=== PATIENT | male | born 1980 | race Hispanic/Latino ===

== ENCOUNTER 2019-05-06 22:29 | Emergency (ER) | payer OTHER ==
[~2019-05-06] VITALS: Ht 167.6 cm; Wt 84.8 kg
--- OUTSIDE RECORDS SUMMARY | 2019-05-06 22:32 | XMS REPORT | Continuity of Care Document ---
Author Author [facility] Address Unknown Phone Unavailable Care Team Providers Care Fast Food Delivery Driver Name Role Phone Blaze Unavailable Unavailable Problems Problem Status Onset Date Classification Date Reported Comments Source Z68.29 BODY MASS INDEX (BMI) 29.0-29.9, Active 03/11/2019 [facility] Obesity, unspecified 05/11/2018 11/21/2018 [facility] DX: Z68.29=BODY MASS INDEX (BMI) 29.0-29 Active 05/07/2018 [facility] Constipation, unspecified constipation type Active Problem 01/10/2019 [facility] Hx of cold sores Active Problem 01/10/2019 [facility] Adult BMI 30+ Active Problem 01/10/2019 [facility] Encntr for general adult medical exam w/o abnormal findings Active Diagnosis 06/10/2017 [facility] BMI 29.0-29.9,adult Active Diagnosis 06/10/2017 [facility] Encntr screen for infections w sexl mode of transmiss Active Diagnosis 06/10/2017 [facility] Chest pain on breathing Active Diagnosis 09/04/2015 [facility] Screening for prostate cancer Active Diagnosis 11/20/2018 [facility] Routine physical examination Active Diagnosis 11/20/2018 [facility] Acute URI Active Diagnosis 11/14/2018 [facility] Encounter to discuss test results Active Diagnosis 09/04/2015 [facility] Body mass index 29.0-29.9, adult 11/21/2018 [facility] Dietary counseling and surveillance 11/21/2018 [facility] Medications Medication Details Route Status Patient Instructions Ordering Provider Order Date Source Famciclovir 3 tablet Orally Active 500 mg Orally as needed (prn) Miles 11/16/2018 [facility] Bromfed DM 10 ml as needed Orally Active 30-2-10 MG/5ML Orally every 4-6 hrs PRN Miles 11/07/2018 [facility] Famciclovir 3 tablet Orally Active 500 mg Orally once a day Elida 08/06/2017 [facility] Famciclovir 3 tables Orally Active 500 mg Orally once Ghebranious 07/22/2015 [facility] NO OTC meds taken not defined In Vitro Active In Vitro lEida [facility] NO OTC meds taken not defined In Vitro Active In Vitro Miles [facility] Allergies, Adverse Reactions, Alerts Substance Category Reaction Severity Reaction type Status Date Reported Comments Source N.K.D.A. Adverse Reaction Info Not Available Adverse Reaction Active 11/19/2018 [facility] Immunizations No Data Provided for This Section Results No Data Provided for This Section Pathology Reports No Data Provided for This Section Diagnostic Reports No Data Provided for This Section Consultation Notes No Data Provided for This Section Discharge Summaries No Data Provided for This Section History and Physicals No Data Provided for This Section Vital Signs Vital Sign Value Date Comments Source Weight 186 11/19/2018 [facility] Height 66 11/19/2018 [facility] Heart Rate 87 11/19/2018 [facility] Diastolic (mm Hg) 82 11/19/2018 [facility] Systolic (mm Hg) 118 11/19/2018 [facility] Weight 181 11/07/2018 [facility] Height 66 11/07/2018 [facility] Temperature Oral (F) 98.8 F 11/07/2018 [facility] Heart Rate 76 11/07/2018 [facility] Diastolic (mm Hg) 74 11/07/2018 [facility] Systolic (mm Hg) 118 11/07/2018 [facility] Weight 185 06/07/2017 [facility] Height 66 06/07/2017 [facility] Heart Rate 88 06/07/2017 [facility] Diastolic (mm Hg) 72 06/07/2017 [facility] Systolic (mm Hg) 128 06/07/2017 [facility] Weight 177 09/02/2015 [facility] Height 66 09/02/2015 [facility] Heart Rate 82 09/02/2015 [facility] Diastolic (mm Hg) 74 09/02/2015 [facility] Systolic (mm Hg) 116 09/02/2015 [facility] Encounters Location Location Details Encounter Type Encounter Number Reason For Visit Attending Provider ADM Date DC Date Status Source [facility] DESIGN INTERN-PHYSICAL EXAM AND FBW [id number] 07/22/2015 07/22/2015 [facility] DESIGN INTERN-PHYSICAL EXAM AND FBW [id number] 07/22/2015 07/22/2015 [facility] Needs call back from Medical Staff [id number] 07/29/2015 07/29/2015 [facility] Needs call back from Medical Staff [id number] 07/29/2015 07/29/2015 [facility] ECHO- [id number] 08/07/2015 08/07/2015 [facility] ECHO- [id number] 08/07/2015 08/07/2015 [facility] TMTJamaica COLLINS [id number] 09/02/2015 09/02/2015 [facility] Recurring [id number] Elizabeth Marrero 06/19/2017 07/19/2017 [facility] Recurring [id number] Elizabeth Marrero 07/31/2017 08/30/2017 [facility] Recurring [id number] Elizabeth Elida 09/11/2017 10/11/2017 [facility] Recurring [id number] Elizabeth Elida 10/24/2017 11/23/2017 [facility] Recurring [id number] Elizabeth Elida 11/29/2017 12/29/2017 [facility] PreReg [id number] Elizabeth Elida 04/05/2018 01/08/2018 [facility] Recurring [id number] Elizabeth Elida 04/05/2018 05/05/2018 [facility] Recurring [id number] Elizabeth Elida 05/09/2018 05/09/2018 [facility] Recurring [id number] Elizabeth Elida 11/13/2018 12/13/2018 [facility] Recurring [id number] Elizabeth Elida 01/31/2019 03/02/2019 [facility] Recurring [id number] Kari Miles 03/13/2019 04/12/2019 [facility] Procedures No Data Provided for This Section Assessment and Plan No Data Provided for This Section Plan of Care No Data Provided for This Section Social History Social History Date Source No data available for this section 04/12/2019 [facility] Social History ElementQualifiersDate Reported Ethnicity . Status , Is malay your primary language? No Sep 02, 2015 Tobacco Use: . Are you a: never smoker Sep 02, 2015 Do you have pets? . Status: Yes, Type: dog(s) Sep 02, 2015 Marital Status: . Meghan Sep 02, 2015 Caffeine intake? . Status: Yes, What type: Tea Sep 02, 2015 Do you exercise? . Answer: Yes, Type: cardio, weight lifting Sep 02, 2015 Do you drink alcohol? . 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/02/2015 [facility] Family History Value Date Source QualifierDescriptionCommentDate Reported Maternal Grandmother Comment not available Sep 02, 2015 Paternal Grandmother Comment not available Sep 02, 2015 Siblings alive Comment not available Sep 02, 2015 Maternal Grandfather Comment not available Sep 02, 2015 Children Comment not available Sep 02, 2015 Father alive Comment not available Sep 02, 2015 Paternal Grandfather Comment not available Sep 02, 2015 Mother alive Comment not available Sep 02, 2015 Other: Comment not available Sep 02, 2015 09/04/2015 [facility] Advance Directives No Data Provided for This Section Functional Status No Data Provided for This Section
--- OUTSIDE RECORDS SUMMARY | 2019-05-06 22:32 | XMS REPORT | Summary of Care ---
Author Author [facility] Organization [facility] Address Unknown Phone Unavailable Encounter HQ Larry_roxy(FIN) [id number] Date(s): 04/05/18 - 05/04/18 [facility] [address] [place] [address]- Encounter Diagnosis Obesity, unspecified (Final) - 05/10/18 Body mass index (BMI) 29.0-29.9, adult (Final) - Dietary counseling and surveillance (Final) - Discharge Disposition: Home or Self Care Attending Physician: Elizabeth Marrero Referring Physician: Elizabeth Marrero Vital Signs No data available for this section Problem List No data available for this section Allergies, Adverse Reactions, Alerts No data available for this section Medications No data available for this section Results No data available for this section Immunizations No data available for this section Procedures No data available for this section Social History No data available for this section Assessment and Plan No data available for this section
--- OUTSIDE RECORDS SUMMARY | 2019-05-06 22:32 | XMS REPORT ---
Author Author Gilmer Lloyd [employer] Address Unknown Phone Unavailable Care Team Providers Care Ship Engines Operating Engineer Name Role Phone Gilmer Lloyd CP Unavailable Allergies, Adverse Reactions, Alerts Substance Reaction Event Type N.K.D.A. Info Not Available Non Drug Allergy Encounters Encounter Location Date TMT- DR.G [facility] Sep 02, 2015 TAXONOMIST-PHYSICAL EXAM AND FBW [facility] Jul 22, 2015 Needs call back from Medical Staff [facility] Jul 29, 2015 ECHO-DR.G [facility] Aug 07, 2015 Problems Problem Type Condition ICD-9 Code Onset Dates Condition Status Assessment Chest pain on breathing R07.1 Active Assessment Encounter to discuss test results Z71.89 Active Problem Hx of cold sores Z86.19 Active Assessment Hx of cold sores Z86.19 Active Medications Medication Code System Code Instructions Start Date End Date Status Dosage Famciclovir MEDISPAN [address]-04 500 mg Orally once Jul 22, 2015 Jul 30, 2015 Active 3 tables [facility] [id number] In Vitro Active Unknown Social History Social History Element Qualifiers Date Reported Ethnicity . Status , Is british virgin islander your primary language? 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
--- OUTSIDE RECORDS SUMMARY | 2019-05-06 22:32 | XMS REPORT | Summary of Care ---
Author Author [facility] Organization [facility] Address Unknown Phone Unavailable Encounter HQ Encntr_alias(FIN) [id number] Date(s): 05/09/18 - 05/09/18 [facility] [address] [place] [address]- Attending Physician: Elizabeth Marrero Referring Physician: Elizabeth [...]
--- OUTSIDE RECORDS SUMMARY | 2019-05-06 22:32 | XMS REPORT ---
Author Author Kari Aquino Organization [employer] Address Unknown Phone Unavailable Care Team Providers Care Rail Express Clerk Name Role Phone Kari Aquino CP Unavailable Allergies, Adverse Reactions, Alerts Substance Reaction Event Type N.K.D.A. Info Not Available Non Drug Allergy Problems Problem Type Condition Code Onset Dates Condition Status Assessment Adult BMI 30+ E66.8 Active Problem Constipation, unspecified constipation type K59.00 Active Problem Hx of cold sores Z86.19 Active Problem Adult BMI 30+ E66.8 Active Assessment Screening for prostate cancer Z12.5 Active Assessment Constipation, unspecified constipation type K59.00 Active Assessment Routine physical examination Z00.00 Active Medications No Known Medications Vital Signs Date/Time: Nov 19, 2018 BMI 30.02 Index Weight 186 lbs Height 66 in Cardiac Monitoring Heart Rate 87 /min Blood Pressure Diastolic 82 mm Hg Blood Pressure Systolic 118 mm Hg Results No Known Results Summary Purpose [employer] Submission
--- OUTSIDE RECORDS SUMMARY | 2019-05-06 22:32 | XMS REPORT ---
Author Author Gilmer Lloyd Organization [employer] Address Unknown Phone Unavailable Care Team Providers Care Lens Dotter Name Role Phone Gilmer Lloyd CP Unavailable Allergies No Known Allergies Problems Problem Type Condition Code Onset Dates Condition Status Problem Constipation, unspecified constipation type K59.00 Active Problem Hx of cold sores Z86.19 Active Problem Adult BMI 30+ E66.8 Active Assessment Adult BMI 30+ E66.8 Active Medications No Known Medications Results No Known Results Summary Purpose [employer] Submission
--- OUTSIDE RECORDS SUMMARY | 2019-05-06 22:32 | XMS REPORT | Summary of Care ---
Author Author [facility] Organization [facility] Address Unknown Phone Unavailable Encounter HQ Encntr_alias(FIN) [id number] Date(s): 01/31/19 - 03/01/19 [facility] [address] [place] [address]- Discharge Disposition: Home or Self Care Attending [...]
--- OUTSIDE RECORDS SUMMARY | 2019-05-06 22:32 | XMS REPORT | Summary of Care ---
Author Author [facility] Organization [facility] Address Unknown Phone Unavailable Encounter HQ Encntr_alias(FIN) [id number] Date(s): 06/19/17 - 07/18/17 [facility] [address] [place] [address]- Discharge Disposition: Home or Self Care Attending [...]
--- OUTSIDE RECORDS SUMMARY | 2019-05-06 22:32 | XMS REPORT ---
Author Author Kari Aquino Organization [employer] Address Unknown Phone Unavailable Care Team Providers Care Film Waxer Name Role Phone Kari Aquino CP Unavailable Allergies, Adverse Reactions, Alerts Substance Reaction Event Type N.K.D.A. Info Not Available Non Drug Allergy Problems Problem Type Condition Code Onset Dates Condition Status Problem Hx of cold sores Z86.19 Active Problem Constipation, unspecified constipation type K59.00 Active Assessment Constipation, unspecified constipation type K59.00 Active Assessment Acute URI J06.9 Active Medications Medication Code System Code Instructions Start Date End Date Status Dosage Bromfed DM [facility] [id number] 30-2-10 MG/5ML Orally every 4-6 hrs PRN Nov 07, 2018 Nov 14, 2018 Active 10 ml as needed Famciclovir [facility] [address]-24 500 mg Orally as needed (prn) Nov 16, 2018 Active 3 tablet NO OTC meds taken [facility] [id number] In Vitro Active not defined Vital Signs Date/Time: Nov 07, 2018 BMI 29.21 Index Weight 181 lbs Height 66 in Temperature 98.8 F Cardiac Monitoring Heart Rate 76 /min Blood Pressure Diastolic 74 mm Hg Blood Pressure Systolic 118 mm Hg Results No Known Results Summary Purpose [employer] Submission
--- OUTSIDE RECORDS SUMMARY | 2019-05-06 22:32 | XMS REPORT ---
Author Author Gilmer Lloyd Organization [employer] Address Unknown Phone Unavailable Care Team Providers Care Filter Plant Operator Name Role Phone Gilmer Lloyd CP Unavailable Encounters Encounter Location Date WASH[place]IA ATTENDANT-PHYSICAL EXAM AND FBW [facility] Jul 22, 2015 Needs call back from Medical Staff [facility] Jul 29, 2015 ECHO-DR.G [facility] Aug 07, 2015 Problems Problem Type Condition ICD-9 Code Onset Dates Condition Status Assessment Chest pain on breathing R07.1 Active Medications Medication Code System Code Instructions Start Date End Date Status Dosage NO OTC meds taken [facility] [address] In Vitro Active Unknown Social History Social History Element Qualifiers Date Reported Ethnicity . Status , Is arabic your primary language? No Jul 22, 2015 Tobacco Use: . Are you a: never smoker Jul 22, 2015 Do you have pets? . Status: Yes, Type: dog(s) Jul 22, 2015 Marital Status: . Meghan Jul 22, 2015 Caffeine intake? . Status: Yes, What type: Tea Jul 22, 2015 Do you exercise? . Answer: Yes, Type: cardio, weight lifting Jul 22, 2015 Do you drink alcohol? . 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
--- OUTSIDE RECORDS SUMMARY | 2019-05-06 22:32 | XMS REPORT ---
Author Author Elizabeth Marrero Organization [employer] Address Unknown Phone Unavailable Care Team Providers Care Food Service Cashier Name Role Phone Elizabeth Marrero CP Unavailable Allergies, Adverse Reactions, Alerts Substance Reaction Event Type N.K.D.A. Info Not Available Non Drug Allergy Problems Problem Type Condition Code Onset Dates Condition Status Problem Hx of cold sores Z86.19 Active Assessment Encntr for general adult medical exam w/o abnormal findings Z00.00 Active Problem Constipation, unspecified constipation type K59.00 Active Assessment Constipation, unspecified constipation type K59.00 Active Assessment BMI 29.0-29.9,adult Z68.29 Active Assessment Hx of cold sores Z86.19 Active Assessment Encntr screen for infections w sexl mode of transmiss Z11.3 Active Medications Medication Code System Code Instructions Start Date End Date Status Dosage Famciclovir [facility] [id number] 500 mg Orally once a day Aug 06, 2017 Active 3 tablet NO OTC meds taken [facility] [address] In Vitro Active not defined Vital Signs Date/Time: Jun 07, 2017 BMI 29.86 Index Weight 185 lbs Height 66 in Cardiac Monitoring Heart Rate 88 /min Blood Pressure Diastolic 72 mm Hg Blood Pressure Systolic 128 mm Hg Results No Known Results Summary Purpose eClinicalWorks Submission
--- OUTSIDE RECORDS SUMMARY | 2019-05-06 22:33 | XMS REPORT | Summary of Care ---
Author Author [facility] Organization [facility] Address Unknown Phone Unavailable Encounter HQ Encntr_alias(FIN) [id number] Date(s): 09/11/17 - 10/10/17 [facility] [address] [place] [address]- Encounter Diagnosis Obesity, unspecified (Final) - 10/16/17 Body mass index (BMI) 29.0-29.9, adult (Final) - Discharge Disposition: Home or Self [...]
--- OUTSIDE RECORDS SUMMARY | 2019-05-06 22:33 | XMS REPORT | Summary of Care ---
Author Author [facility] Organization [facility] Address Unknown Phone Unavailable Encounter HQ Encntr_alias(FIN) [id number] Date(s): 09/11/17 - 10/10/17 [facility] [address] [place] [address]- Encounter Diagnosis Obesity, unspecified (Final) - 10/16/17 [...]
--- OUTSIDE RECORDS SUMMARY | 2019-05-06 22:33 | XMS REPORT | Summary of Care ---
Author Author [facility] Organization [facility] Address Unknown Phone Unavailable Encounter HQ Encntr_alias(FIN) [id number] Date(s): 04/05/18 - 01/08/18 [facility] [address] [place] [address]- Attending Physician: Elizabeth Marrero Referring Physician: Elizabeth [...]
--- OUTSIDE RECORDS SUMMARY | 2019-05-06 22:33 | XMS REPORT | Summary of Care ---
Author Author [facility] Organization [facility] Address Unknown Phone Unavailable Encounter HQ Encntr_alias(FIN) [id number] Date(s): 11/13/18 - 12/12/[address] [facility] [place] [address] [place] [address]- Discharge Disposition: Home or Self Care Attending [...]
--- OUTSIDE RECORDS SUMMARY | 2019-05-06 22:33 | XMS REPORT | Summary of Care ---
Author Author [facility] Organization [facility] Address Unknown Phone Unavailable Encounter HQ Encntr_alias(FIN) [id number] Date(s): 04/05/18 - 01/08/18 [facility] [address] [place] [address]- Attending Physician: Elizabeth Marrero Referring Physician: Elizabeth [...]
--- OUTSIDE RECORDS SUMMARY | 2019-05-06 22:33 | XMS REPORT | Summary of Care ---
Author Author [facility] Organization [facility] Address Unknown Phone Unavailable Encounter HQ Jamisonr_roxy(FIN) [id number] Date(s): 10/24/17 - 11/22/17 [facility] [address] [place] [address]- Encounter Diagnosis Obesity, unspecified (Final) - 11/28/17 Body mass index (BMI) 29.0-29.9, adult (Final) [...]
--- OUTSIDE RECORDS SUMMARY | 2019-05-06 22:33 | XMS REPORT | Summary of Care ---
Author Author [facility] Organization [facility] Address Unknown Phone Unavailable Encounter HQ Encntr_alias(FIN) [id number] Date(s): 09/11/17 - 10/10/17 [facility] [address] [place] [address]- Discharge Disposition: Home or Self Care Attending [...]
--- OUTSIDE RECORDS SUMMARY | 2019-05-06 22:33 | XMS REPORT | Summary of Care ---
Author Author [facility] Organization [facility] Address Unknown Phone Unavailable Encounter HQ Encntr_alias(FIN) [id number] Date(s): 07/31/17 - 08/29/17 [facility] [address] [place] [address]- Discharge Disposition: Home or Self Care Attending [...]
--- OUTSIDE RECORDS SUMMARY | 2019-05-06 22:33 | XMS REPORT | Summary of Care ---
Author Author [facility] Organization [facility] Address Unknown Phone Unavailable Encounter HQ Encntr_alias(FIN) [id number] Date(s): 11/29/17 - 12/28/17 [facility] [address] [place] [address]- [phone] Encounter Diagnosis Body mass index (BMI) 29.0-29.9, adult (Final) - 01/04/18 Discharge Disposition: Home or Self Care Attending [...]
[2019-05-06] MEDS ORDERED: LIDOCAINE HCL 1% LOCAL INJ 20 ML VIAL ONE (22:56)
[2019-05-06] MEDS ORDERED: TETANUS/DIPHTHERIA TOX ADULT 0.5 ML SYR IM ONE (23:00)
[2019-05-06] MEDS ORDERED: TETANUS/DIPHTHERIA TOX ADULT 0.5 ML SYR ONE (23:09)
[2019-05-06] MEDS ORDERED: HYDROCODONE/APAP 5MG-325MG TAB ONE (23:27)
[2019-05-06] MEDS ORDERED: NEOMYCIN/POLYMYX/BACITR OINT 0.9 GM PKT ONE (23:28)
[2019-05-06] MEDS ORDERED: HYDROCODONE/APAP 5MG-325MG TAB PO ONE (23:30)
== END 2019-05-07 00:14 | disposition home or self-care (01) ==
LOC: FSED 22:29
DX: S91.115A Laceration without foreign body of left lesser toe(s) without damage to nail, initial encounter (principal); W26.8XXA Contact with other sharp object(s), not elsewhere classified, initial encounter; Y92.008 Other place in unspecified non-institutional (private) residence as the place of occurrence of the external cause
CPT/HCPCS: 12001; 90471; 90714; 99283; J2001